=== PATIENT | male | born 1980 | race Caucasian/White ===

== ENCOUNTER 2017-02-13 04:54 | Emergency (ER) | payer MEDICAID ==
[~2017-02-13] VITALS: Ht 167.6 cm; Wt 70.3 kg
[2017-02-13 05:36] VITALS: BP 145/77
[2017-02-13] MEDS ORDERED: IBUPROFEN 400 MG TABLET PO ONE (06:30)
--- NOTE | 2017-02-13 07:04 | NUR ---
ASSUMED D/C CARE AT TIME ON BEHALF OF PRIMARY NURSE NICKO. PT REFUSES XRAY TESTS TO BE DONE. STATED "AM LEAVING NOW SINCE MY RIDE IS HERE". DR. MURGUIA NOTIFIED
== END 2017-02-13 07:03 | disposition home or self-care (01) ==
LOC: ER 05:02
DX: S81.811A Laceration without foreign body, right lower leg, initial encounter (principal); Z98.890 Other specified postprocedural states; W26.9XXA Contact with unspecified sharp object(s), initial encounter; Y93.89 Activity, other specified; Y92.89 Other specified places as the place of occurrence of the external cause; Y99.8 Other external cause status
CPT/HCPCS: A4606; A6402; Z7610